=== PATIENT | female | born 1995 | race Caucasian/White ===

== ENCOUNTER 2017-07-23 22:14 | Emergency (ER) | payer OTHER ==
[~2017-07-23] VITALS: Ht 154.9 cm; Wt 104.3 kg
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
--- NOTE | 2017-07-23 23:13 | EKG ---
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
[2017-07-24 00:47] VITALS: BP 144/87
== END 2017-07-24 00:47 | disposition home or self-care (01) ==
LOC: ER 22:14
DX: S69.92XA Unspecified injury of left wrist, hand and finger(s), initial encounter (principal); W86.8XXA Exposure to other electric current, initial encounter; Y93.89 Activity, other specified; Y99.8 Other external cause status; Y92.89 Other specified places as the place of occurrence of the external cause
CPT/HCPCS: 36415; 82553; 84484; 93005; 99285-25

== ENCOUNTER 2018-11-30 13:38 | Emergency (ER) | payer SELFPAY ==
[~2018-11-30] VITALS: Ht 157.5 cm; Wt 96.6 kg
[2018-11-30] MEDS ORDERED: IOHEXOL 300 MG/ML 75 ML VIAL. IV ONE (14:15)
[2018-11-30] MEDS ORDERED: IV NORMAL SALINE 1,000ML 1,000 ML IV ONE (14:15)
[2018-11-30 14:26] LABS: BASO % 0 % (0-3); EOS % 0 % (0-3); HEMATOCRIT 38.2 % (36.0-47.0); LYMPH % 28 % (24-48); MEAN CORPUSCULAR HEMOGLOBIN 28 pg (25-35); MEAN CORPUSCULAR HGB CONC 34 g/dL (31-37); MEAN CORPUSCULAR VOLUME 82 fL (79-100); MONO # 0.9 x10^3/uL (0.0-1.1); MONO % 13 % (0-9); NEUT # 4.1 x10^3uL (1.8-7.7); NEUT % 58 % (31-73); PLATELET COUNT 203 x10^3/uL (140-400); RED BLOOD COUNT 4.69 x10^6/uL (3.50-5.40); RED CELL DISTRIBUTION WIDTH 14.9 % (11.5-14.5); WHITE BLOOD COUNT 7.1 x10^3/uL (4.0-11.0)
[2018-11-30] MEDS ORDERED: ACETAMINOPHEN 500 MG TABLET PO ONE (14:30)
[2018-11-30] MEDS ORDERED: FAMOTIDINE 20 MG/2 ML VIAL IVP ONE (14:30)
[2018-11-30] MEDS ORDERED: KETOROLAC 15 MG/ML VIAL. IV ONE (14:30)
[2018-11-30 14:42] LABS: ALBUMIN 3.5 g/dL (3.4-5.0); ALBUMIN/GLOBULIN RATIO 0.7 (1.0-1.7); CALCIUM 8.8 mg/dL (8.5-10.1); CREATININE 0.9 mg/dL (0.6-1.0); GFR 77.6; MAGNESIUM 1.9 mg/dL (1.8-2.4); POTASSIUM 3.2 mmol/L (3.5-5.1); TOTAL BILIRUBIN 0.4 mg/dL (0.2-1.0); TOTAL PROTEIN 8.8 g/dL (6.4-8.2)
[2018-11-30 14:57] LABS: BILIRUBIN,URINE NEG (NEG); CLARITY,URINE CLOUDY; COLOR,URINE AMBER; GLUCOSE,URINE NEG (NEG); NITRITE,URINE POS (NEG); UROBILINOGEN,URINE 0.2 mg/dL (0.2 mg/dL)
[2018-11-30 14:58] LABS: BACTERIA,URINE MANY /HPF (0-FEW); SQUAMOUS EPITHELIAL CELL,UR MOD /LPF
--- NOTE | 2018-11-30 15:32 | RAD ---
CT study of the abdomen and pelvis with contrast Clinical indications: Abdominal pain. Nausea and vomiting. Symptoms for 2 days. No surgical history. TECHNIQUE: After IV infusion 75 cc Omnipaque 300, helical CT scanning of the abdomen and pelvis was performed. No GI contrast was administered. This may decrease the sensitivity to detect GI tract pathology. PQRS compliance Statement One or more of the following individualized dose reduction techniques were utilized for this study: 1. Automated exposure control 2. Adjustment of the mA and/or kV according to patient size 3. Use of iterative reconstruction technique COMPARISON: None available. FINDINGS: Diffuse fatty infiltration of the liver is evident. The spleen measures 12.6 cm in length. This is normal. Pancreas and gallbladder are normal. No extrahepatic biliary ductal dilatation is seen. No adrenal mass is evident. Both kidneys are normal without hydronephrosis or hydroureter. Urinary bladder is empty. No uterine mass or fibroid is seen. No dominant ovarian cyst or mass is seen. However, there is inflammation around the right ovary and distal small bowel. The right ovary appears normal and is not abnormally enlarged in comparison to the left side. There is enhancement of the right ovarian vein. There is adjacent wall thickening of the distal ileum. The appendix is normal. No abscess or free air is seen. There is a small amount of dependent free fluid within the pelvis. No lytic process is evident. No lung base consolidation is seen. IMPRESSION: Inflammation of the mesentery of the right lower quadrant of the abdomen in association with wall thickening of the distal ileum. This is consistent with enteritis may be infectious or inflammatory in nature. Therefore, Crohn's disease is a consideration. Electronically signed by: Ernesto Bustos MD (11/30/2018 3:29 PM) [id number]
[2018-11-30] MEDS ORDERED: cefTRIAXone SODIUM 1 GM VIAL ONE (15:36)
[2018-11-30] MEDS ORDERED: IV NORMAL SALINE 50ML 50 ML ONE (15:37)
[2018-11-30] MEDS ORDERED: HYOS0.1265 SL (15:39)
[2018-11-30] MEDS ORDERED: FAMO-63 PO (15:39)
[2018-11-30] MEDS ORDERED: ONDA4TAB12 PO (15:39)
[2018-11-30] MEDS ORDERED: CEPH-264 PO (15:39)
--- NOTE | 2018-11-30 15:39 | PHYS DOC ---
Past History Past Medical History: No Pertinent History Past Surgical History: Tonsillectomy Smoking: Non-smoker Alcohol Use: None Drug Use: Marijuana Adult General Chief Complaint Chief Complaint: NAUSEA/VOMITING/DIARRHEA HPI HPI 23-year-old female presents with upper abdominal pain with associated nausea, vo miting, and diarrhea x 2 days. Reports associated fever. Denies known sick contacts. Denies trauma. Denies sore throat or nasal congestion. Denies cough. Denies . Reports menstrual period started today. Review of Systems Review of Systems Constitutional: Reports associated fever and chills Eyes: Denies redness or eye pain HENT: Denies nasal congestion or sore throat Respiratory: Denies cough or shortness of breath Cardiovascular: Denies chest pain or palpitations GI: Reports abdominal pain, nausea, and vomiting : Denies dysuria or hematuria Musculoskeletal: Denies back pain or joint pain Integument: Denies rash or skin lesions Neurologic: Denies headache, focal weakness or sensory changes Complete systems were reviewed and found to be within normal limits, except as documented in this note. Current Medications Current Medications Current Medications Medications (Trade) Dose Ordered Sig/Jeana Start Time Stop Time Status Last Admin Dose Admin Acetaminophen (Tylenol) 500 mg 1X ONCE 11/30/18 14:30 11/30/18 14:31 DC 11/30/18 14:23 500 MG Ceftriaxone Sodium 1 gm/ Sodium Chloride 50 ml @ 100 mls/hr 1X ONCE 11/30/18 15:30 11/30/18 15:59 UNV Famotidine (Pepcid Vial) 20 mg 1X ONCE 11/30/18 14:30 11/30/18 14:31 DC 11/30/18 14:23 20 MG Iohexol (Omnipaque 300 Mg/ml) 75 ml 1X ONCE 11/30/18 14:15 11/30/18 14:16 DC 11/30/18 14:52 75 ML Ketorolac Tromethamine (Toradol 15mg Vial) 15 mg 1X ONCE 11/30/18 14:30 11/30/18 14:31 DC 11/30/18 14:23 15 MG Sodium Chloride 1,000 ml @ 1,000 mls/hr 1X ONCE 11/30/18 14:15 11/30/18 15:14 DC 11/30/18 14:24 1,000 MLS/HR Allergies Allergies Allergies Coded Allergies Type Severity Reaction Last Updated Verified diphenhydramine Allergy Unknown 07/24/17 Yes Physical Exam Physical Exam Constitutional: Well developed, well nourished, no acute distress, non-toxic appearance HENT: Normocephalic, atraumatic, oropharynx moist Eyes: Conjunctiva normal, no discharge Neck: Normal range of motion, no tenderness, supple Cardiovascular: Heart rate normal, regular rhythm Lungs & Thorax: Bilateral breath sounds clear to auscultation, no wheezing Abdomen: Soft, lower quandrant pain on palpation, nondistended, no rebound tenderness Skin: Warm, dry, no erythema, no rash Extremities: No tenderness, ROM intact, no edema Neurologic: Alert and oriented X 3, no focal deficits noted Psychologic: Affect normal, judgement normal, mood normal Current Patient Data Vital Signs Vital Signs Date Time Temp Pulse Resp B/P (MAP) Pulse Ox O2 Delivery O2 Flow Rate FiO2 11/30/18 14:10 102.9 127 20 97 Room Air Lab Results Laboratory Tests Test 11/30/18 14:00 11/30/18 14:30 11/30/18 14:41 White Blood Count 7.1 x10^3/uL (4.0-11.0) Red Blood Count 4.69 x10^6/uL (3.50-5.40) Hemoglobin 13.0 g/dL (12.0-15.5) Hematocrit 38.2 % (36.0-47.0) Mean Corpuscular Volume 82 fL (79-100) Mean Corpuscular Hemoglobin 28 pg (25-35) Mean Corpuscular Hemoglobin Concent 34 g/dL (31-37) Red Cell Distribution Width 14.9 % (11.5-14.5) H Platelet Count 203 x10^3/uL (140-400) Neutrophils (%) (Auto) 58 % (31-73) Lymphocytes (%) (Auto) 28 % (24-48) Monocytes (%) (Auto) 13 % (0-9) H Eosinophils (%) (Auto) 0 % (0-3) Basophils (%) (Auto) 0 % (0-3) Neutrophils # (Auto) 4.1 x10^3uL (1.8-7.7) Lymphocytes # (Auto) 2.0 x10^3/uL (1.0-4.8) Monocytes # (Auto) 0.9 x10^3/uL (0.0-1.1) Eosinophils # (Auto) 0.0 x10^3/uL (0.0-0.7) Basophils # (Auto) 0.0 x10^3/uL (0.0-0.2) Sodium Level 132 mmol/L (136-145) L Potassium Level 3.2 mmol/L (3.5-5.1) L Chloride Level 94 mmol/L (98-107) L Carbon Dioxide Level 26 mmol/L (21-32) Anion Gap 12 (6-14) Blood Urea Nitrogen 11 mg/dL (7-20) Creatinine 0.9 mg/dL (0.6-1.0) Estimated GFR (Cockcroft-Gault) 77.6 BUN/Creatinine Ratio 12 (6-20) Glucose Level 84 mg/dL (70-99) Lactic Acid Level 1.0 mmol/L (0.4-2.0) Calcium Level 8.8 mg/dL (8.5-10.1) Magnesium Level 1.9 mg/dL (1.8-2.4) Total Bilirubin 0.4 mg/dL (0.2-1.0) Aspartate Amino Transferase (AST) 36 U/L (15-37) Alanine Aminotransferase (ALT) 40 U/L (14-59) Alkaline Phosphatase 55 U/L (46-116) Total Protein 8.8 g/dL (6.4-8.2) H Albumin 3.5 g/dL (3.4-5.0) Albumin/Globulin Ratio 0.7 (1.0-1.7) L Lipase 88 U/L (73-393) Urine Collection Type Unknown Urine Color Sara Urine Clarity Cloudy Urine pH 6.0 Urine Specific [place] 1.020 Urine Protein >100 mg/dl (NEG-TRACE) Urine Glucose (UA) Neg mg/dL (NEG) Urine Ketones (Stick) 40 mg/dL (NEG) Urine Blood Trace (NEG) Urine Nitrite Pos (NEG) Urine Bilirubin Neg (NEG) Urine Urobilinogen Dipstick 0.2 mg/dL (0.2 mg/dL) Urine Leukocyte Esterase Neg (NEG) Urine RBC 1-2 /HPF (0-2) Urine WBC 5-10 /HPF (0-4) Urine Squamous Epithelial Cells Mod /LPF Urine Bacteria Many /HPF (0-FEW) Urine Mucus Slight /LPF POC Urine HCG, Qualitative hcg negative (Negative) EKG EKG [] Radiology/Procedures Radiology/Procedures PROCEDURE: CT ABD PELV W/ IV CONTRST ONLY CT study of the abdomen and pelvis with contrast Clinical indications: Abdominal pain. Nausea and vomiting. Symptoms for 2 days. No surgical history. TECHNIQUE: After IV infusion 75 cc Omnipaque 300, helical CT scanning of the abdomen and pelvis was performed. No GI contrast was administered. This may decrease the sensitivity to detect GI tract pathology. PQRS compliance Statement One or more of the following individualized dose reduction techniques were utilized for this study: 1. Automated exposure control 2. Adjustment of the mA and/or kV according to patient size 3. Use of iterative reconstruction technique COMPARISON: None available. FINDINGS: Diffuse fatty infiltration of the liver is evident. The spleen measures 12.6 cm in length. This is normal. Pancreas and gallbladder are normal. No extrahepatic biliary ductal dilatation is seen. No adrenal mass is evident. Both kidneys are normal without hydronephrosis or hydroureter. Urinary bladder is empty. No uterine mass or fibroid is seen. No dominant ovarian cyst or mass is seen. However, there is inflammation around the right ovary and distal small bowel. The right ovary appears normal and is not abnormally enlarged in comparison to the left side. There is enhancement of the right ovarian vein. There is adjacent wall thickening of the distal ileum. The appendix is normal. No abscess or free air is seen. There is a small amount of dependent free fluid within the pelvis. No lytic process is evident. No lung base consolidation is seen. IMPRESSION: Inflammation of the mesentery of the right lower quadrant of the abdomen in association with wall thickening of the distal ileum. This is consistent with enteritis may be infectious or inflammatory in nature. Therefore, Crohn's disease is a consideration. Electronically signed by: Ernesto Bustos MD (11/30/2018 3:29 PM) [id number] Course & Med Decision Making Course & Med Decision Making Pertinent Labs and Imaging studies reviewed. (See chart for details) Patient presents with lower abdominal pain with associated N/V/D and fever/chills. Fever addressed. Symptomatic treatment provided. Labs obtained and posted to chart. UA signs of infection. Empiric antibiotics given. CT abd/pelvis without surgical process. Cannot exclude enteritis or inflammatory bowel disease. Patient stable for discharge with outpatient follow-up with PCP/GI. Discussed findings and plan with patient, who acknowledges understanding and agreement. Dragon Disclaimer Dragon Disclaimer This electronic medical record was generated, in whole or in part, using a voice recognition dictation system. Departure Departure: Impression: Primary Impression: Abdominal pain Additional Impressions: Nausea vomiting and diarrhea Urinary tract infection Disposition: HOME, SELF-CARE Condition: STABLE Referrals: OLVIN PENALOZA MD (PCP) Patient Instructions: Abdominal Pain (Nonspecific), Diarrhea, [id number]-[id number], Diet for Diarrhea, Adult, Nausea and Vomiting, [id number] Scripts Cephalexin (KEFLEX) 500 Mg Capsule 1 CAP PO TID for UTI, #21 CAP Prov: NAA COREA DO 11/30/18 Famotidine (PEPCID) 20 Mg Tablet 1 TAB PO BID for gastritis, #20 TAB Prov: NAA COREA DO 11/30/18 Hyoscyamine Sulfate (LEVSIN-SL) 0.125 Mg Tab.subl 1-2 TAB SL PRN Q4HRS PRN for PAIN, #14 TAB Prov: NAA COREA DO 11/30/18 Ondansetron (ONDANSETRON ODT) 4 Mg Tab.rapdis 1 TAB PO PRN Q6-8HRS PRN for NAUSEA, #16 TAB Prov: NAA COREA DO 11/30/18 Problem Qualifiers Primary Impression: Abdominal pain Abdominal location: lower abdomen, unspecified Qualified Codes: R10.30 - Lower abdominal pain, unspecified Additional Impressions: Urinary tract infection Urinary tract infection type: acute cystitis Hematuria presence: without hematuria Qualified Codes: N30.00 - Acute cystitis without hematuria NAA COREA DO Nov 30, 2018 15:39
[2018-11-30 16:33] VITALS: BP 86/55
== END 2018-11-30 16:37 | disposition home or self-care (01) ==
LOC: ER 13:38
DX: N30.00 Acute cystitis without hematuria (principal); R11.2 Nausea with vomiting, unspecified; R19.7 Diarrhea, unspecified; Z88.8 Allergy status to other drugs, medicaments and biological substances
CPT/HCPCS: 36415; 74177; 80053; 81001; 81025; 83605; 83690; 83735; 85025; 87086; 96361; 96365; 96375; 99285; J0696; J1885; J3490; Q9967; 87186; J7030

== ENCOUNTER 2019-06-23 20:05 | Emergency (ER) | payer OTHER ==
[~2019-06-23] VITALS: Ht 157.5 cm; Wt 93.8 kg
[~2019-06-23 20:05] MED LIST: CEPH-264 PO; FAMO-63 PO; HYOS0.1265 SL; ONDA4TAB12 PO
[2019-06-23 21:38] LABS: BILIRUBIN,URINE NEG (NEG); CLARITY,URINE CLEAR; COLOR,URINE YELLOW; GLUCOSE,URINE NEG (NEG)
[2019-06-23 21:39] LABS: BACTERIA,URINE 0 /HPF (0-FEW); HYALINE CASTS, URINE OCC /HPF; NITRITE,URINE NEG (NEG); RBC,URINE 0 /HPF (0-2); SQUAMOUS EPITHELIAL CELL,UR FEW /LPF; UROBILINOGEN,URINE 0.2 mg/dL (0.2 mg/dL); WBC,URINE OCC /HPF (0-4)
--- NOTE | 2019-06-23 21:53 | PHYS DOC ---
Past History Past Medical History: No Pertinent History Past Surgical History: Tonsillectomy Smoking: Non-smoker Alcohol Use: None Drug Use: Marijuana Adult General Chief Complaint Chief Complaint: FLANK PAIN HPI HPI 24-year-old female presents with left lower back pain. She has been having a cramping pain throughout the day today. She admits that she's been moving a lot of boxes around. She believes she could be up to 2 months . Her last period was in February. He had a positive urine test at home 3 days ago. She denies abdominal pain, vaginal discharge, vaginal bleeding, or cramping. She denies dysuria or increased urinary frequency. No history of kidney stones. She denies any falls or trauma. Denies fever or chills. Review of Systems Review of Systems Constitutional: Denies fever or chills [] Eyes: Denies change in visual acuity, redness, or eye pain [] HENT: Denies nasal congestion or sore throat [] Respiratory: Denies cough or shortness of breath [] Cardiovascular: No additional information not addressed in HPI [] GI: Denies abdominal pain, nausea, vomiting, bloody stools or diarrhea [] : Denies dysuria or hematuria [] Musculoskeletal: Left-sided low back pain[] Integument: Denies rash or skin lesions [] Neurologic: Denies headache, focal weakness or sensory changes [] Endocrine: Denies polyuria or polydipsia [] All other systems were reviewed and found to be within normal limits, except as documented in this note. Allergies Allergies Allergies Coded Allergies Type Severity Reaction Last Updated Verified diphenhydramine Allergy Unknown 07/24/17 Yes Physical Exam Physical Exam Constitutional: Well developed, well nourished, no acute distress, non-toxic appearance. [] HENT: Normocephalic, atraumatic, bilateral external ears normal, oropharynx moist, no oral exudates, nose normal. [] Eyes: PERRLA, EOMI, conjunctiva normal, no discharge. [] Neck: Normal range of motion, no tenderness, supple, no stridor. [] Cardiovascular:Heart rate regular rhythm, no murmur [] Lungs & Thorax: Bilateral breath sounds clear to auscultation [] Abdomen: Bowel sounds normal, soft, no tenderness, no masses, no pulsatile masses. [] Skin: Warm, dry, no erythema, no rash. [] Back: Left-sided lumbar paraspinal tenderness[] Extremities: No tenderness, no cyanosis, no clubbing, ROM intact, no edema. [] Neurologic: Alert and oriented X 3, normal motor function, normal sensory function, no focal deficits noted. [] Psychologic: Affect normal, judgement normal, mood normal. [] Current Patient Data Lab Results Laboratory Tests Test 06/23/19 20:25 06/23/19 20:32 Urine Collection Type Void Urine Color Yellow Urine Clarity Clear Urine pH 5.5 Urine Specific [place] 1.025 Urine Protein Neg (NEG-TRACE) Urine Glucose (UA) Neg mg/dL (NEG) Urine Ketones (Stick) Neg mg/dL (NEG) Urine Blood Neg (NEG) Urine Nitrite Neg (NEG) Urine Bilirubin Neg (NEG) Urine Urobilinogen Dipstick 0.2 mg/dL (0.2 mg/dL) Urine Leukocyte Esterase Neg (NEG) Urine RBC 0 /HPF (0-2) Urine WBC Occ /HPF (0-4) Urine Squamous Epithelial Cells Few /LPF Urine Bacteria 0 /HPF (0-FEW) Urine Hyaline Casts Occ /HPF Urine Mucus Slight /LPF POC Urine HCG, Qualitative hcg positive (Negative) EKG EKG [] Radiology/Procedures Radiology/Procedures [] Course & Med Decision Making Course & Med Decision Making Pertinent Labs and Imaging studies reviewed. (See chart for details) Patient's urine is positive. Her urinalysis is negative for infection. I believe she has a lumbar paraspinal muscle strain. I have advised supportive care with rest, ice, and Tylenol. At about all she can take since she is . She stable for discharge at this time. [] Dragon Disclaimer Dragon Disclaimer This electronic medical record was generated, in whole or in part, using a voice recognition dictation system. Departure Departure: Impression: Primary Impression: Lumbar strain Additional Impression: Disposition: 01 HOME, SELF-CARE Condition: STABLE Referrals: OLVIN PENALOZA MD (PCP) Patient Instructions: Low Back Strain with Rehab-SportsMed Problem Qualifiers Primary Impression: Lumbar strain Encounter type: initial encounter Qualified Codes: S39.012A - Strain of muscle, fascia and tendon of lower back, initial encounter Additional Impression: Weeks of gestation: unspecified Qualified Codes: Z34.90 - Encounter for supervision of normal , unspecified, unspecified trimester STEWART SHARMA DO Jun 23, 2019 21:52
[2019-06-23 22:20] VITALS: BP 118/81
== END 2019-06-23 22:25 | disposition home or self-care (01) ==
LOC: ER 20:05
DX: O9A.211 Injury, poisoning and certain other consequences of external causes complicating pregnancy, first trimester (principal); S39.012A Strain of muscle, fascia and tendon of lower back, initial encounter; Z3A.00 Weeks of gestation of pregnancy not specified; Z88.8 Allergy status to other drugs, medicaments and biological substances; X50.9XXA Other and unspecified overexertion or strenuous movements or postures, initial encounter; Y93.89 Activity, other specified; Y92.89 Other specified places as the place of occurrence of the external cause; Y99.8 Other external cause status
CPT/HCPCS: 81001; 81025; 99283

== ENCOUNTER 2019-09-21 17:12 | Emergency (ER) | payer OTHER ==
[~2019-09-21] VITALS: Ht 157.5 cm; Wt 94.0 kg
--- NOTE | 2019-09-21 18:24 | PHYS DOC ---
Past History Past Medical History: No Pertinent History Past Surgical History: Tonsillectomy Smoking: Non-smoker Alcohol Use: None Drug Use: Marijuana Adult General Chief Complaint Chief Complaint: ABDOMINAL PAIN IN HPI HPI Patient is a 24-year-old female who presents at approximately 19 weeks gesta tional age after falling forward today and landing on her abdomen. Patient states that she has pain in her lower abdomen where she fell and rates that as moderate pain. She denies any vaginal bleeding, discharge or fluid. Patient states that she twisted her back when she fell also has some lower back pain. She denies any fever, nausea or vomiting.[] Review of Systems Review of Systems Constitutional: Denies fever or chills [] Respiratory: Denies cough or shortness of breath [] Cardiovascular: No additional information not addressed in HPI [] GI: Complains of lower abdominal pain without vomiting or diarrhea [] : Denies dysuria or hematuria [] Neurologic: Denies headache, focal weakness or sensory changes [] All other systems were reviewed and found to be within normal limits, except as documented in this note. Allergies Allergies Allergies Coded Allergies Type Severity Reaction Last Updated Verified diphenhydramine Allergy Unknown 07/24/17 Yes Physical Exam Physical Exam Constitutional: Well developed, well nourished, no acute distress, non-toxic appearance. [] HENT: Normocephalic, atraumatic, bilateral external ears normal, oropharynx moist, no oral exudates, nose normal. [] Eyes: PERRLA, EOMI, conjunctiva normal, no discharge. [] Neck: Normal range of motion, no tenderness, supple, no stridor. [] Cardiovascular:Heart rate regular rhythm, no murmur [] Lungs & Thorax: Bilateral breath sounds clear to auscultation [] Abdomen: Bowel sounds normal, soft, with lower abdominal tenderness. [] Skin: Warm, dry, no erythema, no rash. [] Extremities: No tenderness, no cyanosis, no clubbing, ROM intact. [] Neurologic: Alert and oriented X 3, no focal deficits noted. [] Current Patient Data Vital Signs Vital Signs Date Time Temp Pulse Resp B/P (MAP) Pulse Ox O2 Delivery O2 Flow Rate FiO2 09/21/19 17:20 98.2 96 18 122/92 (102) 98 Room Air EKG EKG [] Radiology/Procedures Radiology/Procedures [] Impressions: ROCEDURE: PREG MORE THAN OR EQ TO 14 WKS Exam: Ultrasound OB greater than 14 weeks Indication: Fall Technique: Real-time grayscale and color Doppler images of the pelvis were obtained by the department forensic materials engineer. Comparisons: None FINDINGS: There is a single live intrauterine gestation with heart rate measured at 155 beats minute. Cervix is measured at 4.5 cm in length. measurements as follows: BPD: 4.0 cm corresponding to 18 weeks 2 days Head circumference: 15.76 cm corresponding to 18 weeks 4 days Abdominal circumference: 12 point Malhotra corresponding to 18 weeks 3 days Femur length: 2.8 cm corresponding to 18 weeks 3 days Placenta is anterior and appears normal. IMPRESSION: 1. Single live intrauterine gestation measuring 18 weeks 3 days gestation by current ultrasound. 2. Dedicated survey is recommended in the nonemergent/outpatient setting, if not already performed. Electronically signed by: Hansa Madrigal MD (09/21/2019 7:56 PM) [id number] Course & Med Decision Making Course & Med Decision Making Pertinent Labs and Imaging studies reviewed. (See chart for details) [] Dragon Disclaimer Dragon Disclaimer This electronic medical record was generated, in whole or in part, using a voice recognition dictation system. Departure Departure: Impression: Primary Impression: Abdominal pain during Disposition: 01 HOME, SELF-CARE Condition: STABLE Referrals: OLVIN PENALOZA MD (PCP) Patient Instructions: Abdominal Pain During Problem Qualifiers Primary Impression: Abdominal pain during Trimester: second trimester Qualified Codes: O26.892 - Other specified related conditions, second trimester; R10.9 - Unspecified abdominal pain REINA ADHIKARI Jr. DO Sep 21, 2019 18:24
[2019-09-21 18:59] LABS: BACTERIA,URINE MOD /HPF (0-FEW); BILIRUBIN,URINE NEG (NEG); CLARITY,URINE HAZY; COLOR,URINE YELLOW; GLUCOSE,URINE NEG (NEG); NITRITE,URINE POS (NEG); RBC,URINE 0 /HPF (0-2); SQUAMOUS EPITHELIAL CELL,UR FEW /LPF; UROBILINOGEN,URINE 0.2 mg/dL (0.2 mg/dL)
--- NOTE | 2019-09-21 19:59 | RAD ---
Exam: Ultrasound OB greater than 14 weeks Indication: Fall Technique: Real-time grayscale and color Doppler images of the pelvis were obtained by the department photolithographer. Comparisons: None FINDINGS: There is a single live intrauterine gestation with heart rate measured at 155 beats minute. Cervix is measured at 4.5 cm in length. measurements as follows: BPD: 4.0 cm corresponding to 18 weeks 2 days Head circumference: 15.76 cm corresponding to 18 weeks 4 days Abdominal circumference: 12 point Malhotra corresponding to 18 weeks 3 days Femur length: 2.8 cm corresponding to 18 weeks 3 days Placenta is anterior and appears normal. IMPRESSION: 1. Single live intrauterine gestation measuring 18 weeks 3 days gestation by current ultrasound. 2. Dedicated survey is recommended in the nonemergent/outpatient setting, if not already performed. Electronically signed by: Hansa Madrigal MD (09/21/2019 7:56 PM) [id number]
[2019-09-21 20:18] VITALS: BP 129/74
== END 2019-09-21 20:20 | disposition home or self-care (01) ==
LOC: ER 17:12
DX: O9A.212 Injury, poisoning and certain other consequences of external causes complicating pregnancy, second trimester (principal); R10.30 Lower abdominal pain, unspecified; M54.5 Low back pain; W18.39XA Other fall on same level, initial encounter; Y93.89 Activity, other specified; Y92.89 Other specified places as the place of occurrence of the external cause; Y99.8 Other external cause status; Z3A.18 18 weeks gestation of pregnancy; Z88.8 Allergy status to other drugs, medicaments and biological substances
CPT/HCPCS: 76805; 81001; 87086; 99284-25

== ENCOUNTER 2020-08-11 08:16 | Emergency (ER) | payer OTHER ==
[~2020-08-11] VITALS: Ht 157.5 cm; Wt 93.0 kg
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
[2020-08-11 10:26] LABS: BACTERIA,URINE FEW /HPF (0-FEW); BILIRUBIN,URINE NEG (NEG); CLARITY,URINE CLOUDY; COLOR,URINE YELLOW; GLUCOSE,URINE NEG (NEG); NITRITE,URINE NEG (NEG); UROBILINOGEN,URINE 0.2 mg/dL (0.2 mg/dL)
[2020-08-11 10:27] LABS: GRANULAR CASTS,URINE OCC /HPF; SQUAMOUS EPITHELIAL CELL,UR MANY /LPF
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
[2020-08-11 10:55] VITALS: BP 151/90
== END 2020-08-11 10:55 | disposition home or self-care (01) ==
LOC: ER 08:16
DX: O26.891 Other specified pregnancy related conditions, first trimester (principal); S02.2XXA Fracture of nasal bones, initial encounter for closed fracture; S00.531A Contusion of lip, initial encounter; R10.9 Unspecified abdominal pain; R60.0 Localized edema; F32.9 Major depressive disorder, single episode, unspecified; F12.90 Cannabis use, unspecified, uncomplicated; Z90.89 Acquired absence of other organs; Z88.8 Allergy status to other drugs, medicaments and biological substances; Y08.89XA Assault by other specified means, initial encounter; Y93.89 Activity, other specified; Y92.413 State road as the place of occurrence of the external cause; Y99.8 Other external cause status
CPT/HCPCS: 76801; 81001; 81025; 87086; 99284

== ENCOUNTER 2020-11-13 15:37 | Emergency (ER) | payer OTHER ==
[~2020-11-13] VITALS: Ht 157.5 cm; Wt 104.5 kg
--- NOTE | 2020-11-13 16:17 | PHYS DOC ---
Past History Past Medical History: Bipolar, Depression, Other Additional Past Medical Histor: HSV2, iron deficiency Past Surgical History: Tonsillectomy Smoking: Non-smoker Alcohol Use: None Drug Use: Marijuana General Adult EDM: Chief Complaint: PELVIC PAIN HPI: HPI: Patient is a 25-year-old female presents with pelvic pain. Patient states that she 27 weeks . 2 days ago patient states that she started having pelvic pain and pressure, and her leg like it was tingling. Patient denies vaginal bleeding, discharge, odor or loss of fluid. Patient is . Patient states that she did take Tylenol yesterday but did not get any relief. Denies medical history. Review of Systems: Review of Systems: Constitutional: Denies fever or chills Eyes: Denies change in visual acuity HENT: Denies nasal congestion or sore throat Respiratory: Denies cough or shortness of breath Cardiovascular: Denies chest pain or edema GI: Denies abdominal pain, nausea, vomiting, bloody stools or diarrhea /Pelvic: Denies dysuria, reports pelvic pressure and pain Musculoskeletal: Denies back pain or joint pain Integument: Denies rash Neurologic: Denies headache, focal weakness or sensory changes Endocrine: Denies polyuria or polydipsia Lymphatic: Denies swollen glands Psychiatric: Denies depression or anxiety Allergies: Allergies: Allergies Coded Allergies Type Severity Reaction Last Updated Verified diphenhydramine Allergy Unknown 08/11/20 Yes Physical Exam: PE: Constitutional: Well developed, well nourished, no acute distress, non-toxic appearance. [] HENT: Normocephalic, atraumatic, bilateral external ears normal, oropharynx moist, no oral exudates, nose normal. [] Eyes: PERRLA, EOMI, conjunctiva normal, no discharge. [] Neck: Normal range of motion, no tenderness, supple, no stridor. [] Cardiovascular:Heart rate regular rhythm, no murmur [] Lungs & Thorax: Bilateral breath sounds clear to auscultation [] Abdomen: Bowel sounds normal, soft, no tenderness, no masses, no pulsatile masses. [] Skin: Warm, dry, no erythema, no rash. [] Back: No tenderness, no CVA tenderness. [] Pelvic: Cervical OS closed, no bleeding or discharge Current Patient Data: Vital Signs: Vital Signs Date Time Temp Pulse Resp B/P (MAP) Pulse Ox O2 Delivery O2 Flow Rate FiO2 11/13/20 15:54 98.7 94 18 132/71 (91) 99 Room Air EKG: EKG: [] Radiology/Procedures: Radiology/Procedures: [] Heart Score: C/O Chest Pain: No Risk Factors: Risk Factors: DM, Current or recent (<one month) smoker, HTN, HLP, family history of CAD, obesity. Risk Scores: Score 0 - 3: 2.5% MACE over next 6 weeks - Discharge Home Score 4 - 6: 20.3% MACE over next 6 weeks - Admit for Clinical Observation Score 7 - 10: 72.7% MACE over next 6 weeks - Early Invasive Strategies Course & Med Decision Making: Course & Med Decision Making Pertinent Labs and Imaging studies reviewed. (See chart for details) [] 25-year-old female who presents with pelvic pain, pressure. Patient is G4, P2. No bleeding or discharge on physical exam. Cervical os is closed. heart tones are 151. GC chlamydia and wet prep swab sent out. UA is negative for infection. Wet prep is negative. Patient instructed to take Tylenol for discomfort. Patient instructed to call her OB tomorrow for a follow-up. Patient given strict return precautions. Dragon Disclaimer: [employer] Disclaimer: This electronic medical record was generated, in whole or in part, using a voice recognition dictation system. Departure Departure: Impression: Primary Impression: Pelvic pressure in Disposition: HOME / SELF CARE / HOMELESS Condition: STABLE Referrals: OLVIN PENALOZA MD (PCP) Patient Instructions: Back Pain in Additional Instructions: You were seen in the emergency room for pelvic pressure pain, back pain. Please return to the emergency room if you have vaginal bleeding, loss of fluid, cramping increase in pain or any concerning symptoms. Please call your OB tomorrow to set up an appointment for further management. Your your UA was negative for infection. You can take Tylenol for discomfort. EMERGENCY DEPARTMENT GENERAL DISCHARGE INSTRUCTIONS Thank you for coming to [facility] (ED) today and trusting us with you care. We trust that you had a positivie experience in our Emergency Department. If you wish to speak to the department management, you may call the director at [phone]. YOUR FOLLOW UP INSTRUCTIONS ARE FOLLOWS: 1. Do you have a private Doctor? If you do not have a private doctor, please ask for a resource list of physicians or clinics that may be able to assist you with follow up care. 2. The Emergency Physician has interpreted your x-rays. The X-Ray specialist will also review them. If there is a change in the findings, you will be notified in 48 hours when at all possible. 3. A lab test or culture has been done, your results will be reviewed and you will be notified if you need a change in treatment. ADDITIONAL INSTRUCTIONS AND INFORMATION: 1. Your care today has been supervised by a physician who is specially trained in emergency care. Many problems require more than one evaluation for a complete diagnosis and treatment. We recommend that you schedule your follow up appointment as recommended to ensure complete treatment of you illness or injury. If you are unable to obtain follow up care and continue to have a problem, or if your condition worsens, we recommend that you return to the ED. 2. We are not able to safely determine your condition over the phone nor are we able to give sound medical advice over the phone. For these safety reasons, if you call for medical advice we will ask you to come to the ED for further evaluation. 3. If you have any questions regarding these discharge instructions please call the ED at [phone]. SAFETY INFORMATION: In the interest of safety, wellness, and injury prevention; we encourage you to wear your sealbelt, if you smoke; quite smoking, and we encourage family to use a protective helmet for bicycling and other sporting events that present an increased risk for head injury. IF YOUR SYMPTOMS WORSEN OR NEW SYMPTOMS DEVELOP, OR YOU HAVE CONCERNS ABOUT YOUR CONDITION; OR IF YOUR CONDITION WORSENS WHILE YOU ARE WAITING FOR YOUR FOLLOW UP INESSA OINTMENT; EITHER CONTACT YOUR PRIMARY CARE DOCTOR, THE PHYSICIAN WHOSE NAME AND NUMBER YOU WERE GIVEN, OR RETURN TO THE ED IMMEDIATELY. SULEMA HARMON APRN November 13, 2020 16:17
[2020-11-13 17:45] VITALS: BP 128/71
[2020-11-13 17:53] LABS: BACTERIA,URINE FEW /HPF (0-FEW); BILIRUBIN,URINE NEG (NEG); CLARITY,URINE CLEAR; COLOR,URINE YELLOW; GLUCOSE,URINE NEG (NEG); NITRITE,URINE NEG (NEG); RBC,URINE 0 /HPF (0-2); UROBILINOGEN,URINE 0.2 mg/dL (0.2 mg/dL); WBC,URINE OCC /HPF (0-4)
[2020-11-13 17:54] LABS: SQUAMOUS EPITHELIAL CELL,UR FEW /LPF
[2020-11-13] MEDS ORDERED: ACETAMINOPHEN 500 MG TABLET PO ONE (18:00)
[2020-11-14 17:16] LABS: CHLAMYDIA PROBE Negative (Negative)
== END 2020-11-13 18:30 | disposition home or self-care (01) ==
LOC: ER 15:37
DX: O26.892 Other specified pregnancy related conditions, second trimester (principal); R10.2 Pelvic and perineal pain; Z3A.27 27 weeks gestation of pregnancy; Z88.8 Allergy status to other drugs, medicaments and biological substances
CPT/HCPCS: 81001; 87491; 87591; 99284; Q0111

== ENCOUNTER 2021-01-24 14:13 | Emergency (ER) | payer OTHER ==
[~2021-01-24] VITALS: Ht 157.5 cm; Wt 104.5 kg
[2021-01-24] MEDS ORDERED: ACETAMINOPHEN 500 MG TABLET PO ONE (16:00)
--- NOTE | 2021-01-24 16:04 | PHYS DOC ---
Past History Past Medical History: Bipolar, Depression, Other Additional Past Medical Histor: HSV2, iron deficiency Past Surgical History: No Surgical History, Tonsillectomy Smoking: Non-smoker Alcohol Use: None Drug Use: None, Marijuana General Adult EDM: Chief Complaint: COUGH Problems: (1) Shortness of breath HPI: HPI: 25-year-old female who is currently 36 weeks gestation presents to the emergency department complaining of shortness of breath, chills, congestion and not feeling well for the past several days. She reports that her recently tested positive for Covid and she took an at home Covid test that was positive as well. She endorses a cough along with shortness of breath. the patient denies loss of fluid, vaginal discharge, vaginal bleeding, headache, vision changes, abdominal pain, nausea, vomiting, diarrhea, change in urination, edema. Review of Systems: Review of Systems: Constitutional: Admits to chills, fatigue. Eyes: Denies change in vision, pain. HENT: Admits to congestion and shortness of breath. Respiratory: Admits to shortness of breath and cough. Cardiovascular: Denies chest pain or edema. GI: Denies abdominal pain, nausea. : Denies change in urination, dysuria, vaginal bleeding, vaginal discharge, l oss of fluid. Musculoskeletal: Denies extremity pain, or trauma. Skin: Denies rash, skin change. Neurologic: Denies headache, focal weakness. Psychiatric: Denies depression or anxiety. All other systems reviewed as negative except for what was mentioned in the HPI. Family History: Family History: Noncontributory Current Medications: Current Meds: Current Medications Medications (Trade) Dose Ordered Sig/[facility] Start Time Stop Time Status Last Admin Dose Admin Acetaminophen (Tylenol) 1,000 mg 1X ONCE 01/24/21 16:00 01/24/21 16:01 Allergies: Allergies: Allergies Coded Allergies Type Severity Reaction Last Updated Verified diphenhydramine Allergy Unknown 08/11/20 Yes Physical Exam: PE: Constitutional: No acute distress, non-toxic appearance. HENT: Atraumatic, bilateral external ears normal, nose normal. Eyes: PERRLA, EOMI, conjunctiva normal, no discharge. Neck: Normal range of motion, no tenderness, supple, no stridor. Cardiovascular: Heart rate regular rhythm. 2+ radial pulses Lungs & Thorax: No respiratory distress, symmetrical expansion. Bilateral breat h sounds clear to auscultation Abdomen: Gravid uterus, soft no tenderness Skin: Warm, dry. Extremities: No tenderness, no cyanosis, ROM intact, no edema. Neurologic: Alert and oriented X 3, normal motor function, normal sensory function, no focal deficits noted. Non ataxic gait. GCS 15. Psychologic: Affect normal, judgment normal, mood normal. Current Patient Data: Labs: Laboratory Tests Test 01/24/21 16:06 Urine Collection Type Unknown Urine Color Yellow Urine Clarity Hazy Urine pH 5.5 Urine Specific [place] 1.025 Urine Protein Neg (NEG-TRACE) Urine Glucose (UA) Neg mg/dL (NEG) Urine Ketones (Stick) 15 mg/dL (NEG) Urine Blood Neg (NEG) Urine Nitrite Neg (NEG) Urine Bilirubin Neg (NEG) Urine Urobilinogen Dipstick 0.2 mg/dL (0.2 mg/dL) Urine Leukocyte Esterase Neg (NEG) Urine RBC Occ /HPF (0-2) Urine WBC 0 /HPF (0-4) Urine Squamous Epithelial Cells Mod /LPF Urine Bacteria 0 /HPF (0-FEW) Urine Mucus Slight /LPF Vital Signs: Vital Signs Date Time Temp Pulse Resp B/P (MAP) Pulse Ox O2 Delivery O2 Flow Rate FiO2 01/24/21 14:27 98.5 98 16 125/81 99 Room Air Radiology/Procedures: Radiology/Procedures: XR CHEST 1V Clinical History: Reason: shortness of breath / Spl. Instructions: / History: Technique: AP view of the chest was obtained at 01/24/2021 4:05 PM. Comparison: None. Findings: The cardiomediastinal silhouette is normal. The pulmonary vasculature is normal. The lungs and pleural margins are clear. Impression: No evidence of an acute cardiopulmonary process. Electronically signed by: Eris Headley III, MD (01/24/2021 4:26 PM) Heart Score: C/O Chest Pain: N/A Course & Med Decision Making: Course & Med Decision Making Patient's urine and chest x-ray look appropriate. She was swabbed for Covid today. She otherwise is not requiring any supplemental oxygen and her vital si gns are normal and she has no related complaints. Her heart tones are 187. She was urged to follow-up with her [facility] for a follow-up as directed for her . She otherwise looks well today Departure Departure: Impression: Primary Impression: Viral infection Additional Impression: Third trimester Disposition: HOME / SELF CARE / HOMELESS Condition: STABLE Referrals: OLVIN PENALOZA MD (PCP) Patient Instructions: Upper Respiratory Infection, Adult Additional Instructions: You were seen in the emergency department for a upper respiratory tract infection, most likely from COVID-19. You should return to the ED if you develop worsening cough, shortness of breath, chest pain, or any other new or concerning symptoms. You can use an OTC sinus rinse to help with sinus con gestion. Your cough may persist for a few weeks but your other symptoms should gradually improve. You should make sure to drink plenty of fluids at home. You may use Tylenol at home for fevers every 4-6 hours no more than 4000 mg/day. Please remember it is very important that you self isolate/quarantine at home, stay away from family and friends, and stay away from work until you are cleared by your physician or you test negative and are asymptomatic. Your baby's heart tones are 187 today, this is slightly fast, but the measurement was taken at one point in time. Return immediately if you experience persistent contractions, vaginal bleeding, if you are concerned your water has broken, if you have persistent abdominal pain, if you are not feeling the baby move at least 10 times in any 2 hour period, or for any other concerning symptoms. Please follow-up with your [facility] as directed GUANAKITO FUNEZ DO Jan 24, 2021 16:04
--- NOTE | 2021-01-24 16:28 | RAD ---
XR CHEST 1V Clinical History: Reason: shortness of breath / Spl. Instructions: / History: Technique: AP view of the chest was obtained at 01/24/2021 4:05 PM. Comparison: None. Findings: The cardiomediastinal silhouette is normal. The pulmonary vasculature is normal. The lungs and pleura l margins are clear. Impression: No evidence of an acute cardiopulmonary process. Electronically signed by: Eris Headley III, MD (01/24/2021 4:26 PM) [id number]
[2021-01-24 17:04] LABS: BACTERIA,URINE 0 /HPF (0-FEW); BILIRUBIN,URINE NEG (NEG); CLARITY,URINE HAZY; COLOR,URINE YELLOW; GLUCOSE,URINE NEG (NEG); NITRITE,URINE NEG (NEG); RBC,URINE OCC /HPF (0-2); SQUAMOUS EPITHELIAL CELL,UR MOD /LPF; UROBILINOGEN,URINE 0.2 mg/dL (0.2 mg/dL); WBC,URINE 0 /HPF (0-4)
[2021-01-24 17:30] VITALS: BP 108/68
--- NOTE | 2021-01-27 10:17 | NUR ---
IP: Informed pt of positive covid test and the need to quarantine for 10 days. Pt verbalized understanding.
== END 2021-01-24 17:36 | disposition home or self-care (01) ==
LOC: ER 14:13
DX: O98.513 Other viral diseases complicating pregnancy, third trimester (principal); U07.1 COVID-19; O02.9 Abnormal product of conception, unspecified; O08.0 Genital tract and pelvic infection following ectopic and molar pregnancy; Z3A.36 36 weeks gestation of pregnancy
CPT/HCPCS: 71045; 81001; 99284; C9803; U0003

== ENCOUNTER 2021-06-12 17:05 | Emergency (ER) | payer OTHER ==
[~2021-06-12] VITALS: Ht 157.5 cm; Wt 104.5 kg
[2021-06-12 17:08] VITALS: BP 148/78
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
[2021-06-12] MEDS ORDERED: CYCL10TA19 PO (18:48)
== END 2021-06-12 18:50 | disposition home or self-care (01) ==
LOC: ER 17:05
DX: S13.9XXA Sprain of joints and ligaments of unspecified parts of neck, initial encounter (principal); S20.222A Contusion of left back wall of thorax, initial encounter; S20.212A Contusion of left front wall of thorax, initial encounter; S09.8XXA Other specified injuries of head, initial encounter; Z88.8 Allergy status to other drugs, medicaments and biological substances; Y08.89XA Assault by other specified means, initial encounter; Y93.89 Activity, other specified; Y92.89 Other specified places as the place of occurrence of the external cause; Y99.8 Other external cause status
CPT/HCPCS: 70450; 72125; 72128; 72131; 99284-25

== ENCOUNTER 2021-07-03 06:34 | Emergency (ER) | payer OTHER ==
[~2021-07-03] VITALS: Ht 157.5 cm; Wt 104.5 kg
[~2021-07-03 06:34] MED LIST changes: +CYCL10TA19 PO
--- NOTE | 2021-07-03 06:54 | PHYS DOC ---
Past History Past Medical History: Bipolar, Depression, Other Additional Past Medical Histor: HSV2, iron deficiency Past Surgical History: No Surgical History, Tonsillectomy Smoking: Non-smoker Alcohol Use: None Drug Use: None, Marijuana Adult General HPI HPI Patient is a 26-year-old female presenting for upper respiratory symptoms. Reports onset was 3 days ago. States she had recent positive COVID interaction with coworker 5 days ago. States symptoms started with nasal congestion with later development of bilateral eye itching and clear drainage with loss of taste and smell this morning which concerned her prompting her to come in for evaluation. She is not vaccinated against COVID-19 Review of Systems Review of Systems Fourteen body systems of review of systems have been reviewed. See HPI for pertinent positives and negative responses, other heath all other systems are negative, non-pertinent or non-contributory Allergies Allergies Allergies Coded Allergies Type Severity Reaction Last Updated Verified diphenhydramine Allergy Unknown 08/11/20 Yes Physical Exam Physical Exam General: Appears well, non toxic, and comfortable Skin: Warm, dry. Normal for ethnicity. HEENT: Atraumatic. PERRLA. Rhinorrhea and congestion. Nasal turbinates boggy b/l. Moist mucous membranes. Uvula midline. Maintaining secretions. No phonation changes. Neck: Trachea midline. Normal ROM. No stridor. No meningeal signs or nuchal rigidity Respiratory: Normal WOB. CTAB w/o w/r/r. No tachypnea. Cardiovascular: Regular rate and rhythm. Normal peripheral perfusion. Abdomen: Soft. Non tender. No distension. Back: Normal ROM. Musculoskeletal: No swelling or deformity. Neuro: Alert and oriented x 4. MAEE. Lymph: No cervical LAD. Psych: Normal affect and mood. EKG EKG [] Radiology/Procedures Radiology/Procedures [] Heart Score C/O Chest Pain: No Risk Factors: Risk Factors: DM, Current or recent (<one month) smoker, HTN, HLP, family history of CAD, obesity. Risk Scores: Risk Factors: DM, Current or recent (<one month) smoker, HTN, HLP, family history of CAD, obesity. Course & Med Decision Making Course & Med Decision Making CBC is unremarkable HPI and physical exam nonconcerning for any emergent or surgical issues. I disclose most likely diagnosis of viral syndrome, cannot displays COVID-19 given current pandemic in an unvaccinated individual with positive contact. PCR test obtained with results pending Appropriate self quarantine and subsequently supportive care instructions were discussed at length with understanding verbalized by patient prior to ER depart martha Johnson Disclaimer Elizabeth Disclaimer This electronic medical record was generated, in whole or in part, using a voice recognition dictation system. Departure Departure: Impression: Primary Impression: Viral syndrome Additional Impression: Person under investigation for COVID-19 Disposition: HOME / SELF CARE / HOMELESS Condition: STABLE Referrals: OLVIN PENALOZA MD (PCP) Additional Instructions: You were seen for nasal congestion, fever, body aches, and possible infection with COVID-19. Your physical exam was reassuring. We tested you for COVID-19 but this test does not come back for 1 to 2 days. In the meantime you need to quarantine yourself at home away from all other individuals, especially those who are elderly or have any other chronic health issues or an immunocompromised status. You should return to the ED if you develop worsening cough, shortness of breath, chest pain, or any other new or concerning symptoms. Alternate Tylenol and ibuprofen as needed for body aches and pain. If your test does come back positive you need to quarantine yourself for 10 days until symptom-free. You should make sure to drink plenty of fluids and get plenty of rest. Problem Qualifiers KAMRON LAUREANO DO Jul 03, 2021 06:54
[2021-07-03 06:58] VITALS: BP 138/78
== END 2021-07-03 07:28 | disposition home or self-care (01) ==
LOC: ER 06:34
DX: B34.9 Viral infection, unspecified (principal); Z20.822 Contact with and (suspected) exposure to COVID-19; F31.9 Bipolar disorder, unspecified; Z88.8 Allergy status to other drugs, medicaments and biological substances
CPT/HCPCS: 99282

== ENCOUNTER 2021-09-20 11:42 | Emergency (ER) | payer OTHER ==
[~2021-09-20] VITALS: Ht 157.5 cm; Wt 99.4 kg
--- NOTE | 2021-09-20 12:49 | PHYS DOC ---
Past History Past Medical History: Bipolar, Depression, Other Additional Past Medical Histor: HSV2, iron deficiency Past Surgical History: Tonsillectomy Smoking: Non-smoker Alcohol Use: None Drug Use: None, Marijuana General Adult EDM: Chief Complaint: ELBOW PROBLEM HPI: HPI: Patient is a 26-year-old female who presents with right elbow pain. Patient states that a week ago at work she was lifting boxes when she heard a pop in her right elbow. Patient states her elbow has been sore since last week. Patient was at work again today when she was pulling a box and had the same pain in her elbow. Patient reports that her employer sent her into the ER to be evaluated. Denies taking anything for discomfort. No medical history. Review of Systems: Review of Systems: ROS At least 10 ROS systems have been reviewed and are negative except as documented in the HPI. General: Negative except as outlined in HPI above. Skin: Negative except as outlined in HPI above. HEENT: Negative except as outlined in HPI above. Neck: Negative except as outlined in HPI above. Respiratory: Negative except as outlined in HPI above.. Cardiovascular: Negative except as outlined in HPI above. Abdomen: Negative except as outlined in HPI above. : Negative except as outlined in HPI above. Back/MSK: Negative except as outlined in HPI above. Neuro: Negative except as outlined in HPI above. Psych: Negative except as outlined in HPI above. Allergies: Allergies: Allergies Coded Allergies Type Severity Reaction Last Updated Verified diphenhydramine Allergy Unknown 09/20/21 Yes Physical Exam: PE: Constitutional: Well developed, well nourished, no acute distress, non-toxic appearance. [] HENT: Normocephalic, atraumatic, bilateral external ears normal, oropharynx moist, no oral exudates, nose normal. [] Eyes: PERRLA, EOMI, conjunctiva normal, no discharge. [] Neck: Normal range of motion, no tenderness, supple, no stridor. [] Cardiovascular:Heart rate regular rhythm, no murmur [] Lungs & Thorax: Bilateral breath sounds clear to auscultation [] Abdomen: Bowel sounds normal, soft, no tenderness, no masses, no pulsatile masses. [] Skin: Warm, dry, no erythema, no rash. [] Back: No tenderness, no CVA tenderness. [] Extremities: Right elbow tenderness, range of motion is intact, no swelling, radial pulses intact Neurologic: Alert and oriented X 3, normal motor function, normal sensory function, no focal deficits noted. [] Current Patient Data: Vital Signs: Vital Signs Date Time Temp Pulse Resp B/P (MAP) Pulse Ox O2 Delivery O2 Flow Rate FiO2 09/20/21 11:50 97.5 81 18 121/71 (88) 98 Room Air EKG: EKG: [] Radiology/Procedures: Radiology/Procedures: []EXAMINATION: Right elbow radiograph. VIEWS: 3 views of the right elbow COMPARISON: None INDICATION:26 years, Female, pain. FINDINGS: No acute fracture, dislocation or subluxation. No bone erosion or periosteal reaction. No sizable joint effusion. IMPRESSION: No acute radiographic osseous process. Electronically signed by: Fernando Lr DO (09/20/2021 1:31 PM) [facility] Heart Score: C/O Chest Pain: No Risk Factors: Risk Factors: DM, Current or recent (<one month) smoker, HTN, HLP, family history of CAD, obesity. Risk Scores: Score 0 - 3: 2.5% MACE over next 6 weeks - Discharge Home Score 4 - 6: 20.3% MACE over next 6 weeks - Admit for Clinical Observation Score 7 - 10: 72.7% MACE over next 6 weeks - Early Invasive Strategies Course & Med Decision Making: Course & Med Decision Making Pertinent Labs and Imaging studies reviewed. (See chart for details) [] 26-year-old male presents with right elbow pain after trying to move a box. Pain started 1 week ago. Patient denies take anything at home for discomfort. Range of motion is intact. Work-up in ER consisted of x-ray of right elbow. Ibuprofen for pain. X-ray is unremarkable. Discussed all results with patient. Advised patient to continue taking ibuprofen and Tylenol at home for pain. Educated on RICE. Patient is to follow-up with her PCP on Wednesday for a return to work or possible restrictions. Patient understands discharge instructions and appreciative. Dragon Disclaimer: Dragon Disclaimer: This electronic medical record was generated, in whole or in part, using a voice recognition dictation system. Departure Departure: Impression: Primary Impression: Right elbow pain Disposition: [facility] Condition: STABLE Referrals: OLVIN PENALOZA MD (PCP) Patient Instructions: Elbow Injury Additional Instructions: You were seen emergency room for right elbow pain. Rest, ice to the area, elevate to help with the swelling and pain. Ibuprofen at home for discomfort. Follow-up with your PCP on Wednesday to get further evaluation for restrictions for work. EMERGENCY DEPARTMENT GENERAL DISCHARGE INSTRUCTIONS Thank you for coming to [facility] (ED) today and trusting us with you care. We trust that you had a positivie experience in our Emergency Department. If you wish to speak to the department management, you may call the director at [phone]. YOUR FOLLOW UP INSTRUCTIONS ARE FOLLOWS: 1. Do you have a private Doctor? If you do not have a private doctor, please ask for a resource list of physicians or clinics that may be able to assist you with follow up care. 2. The Emergency Physician has interpreted your x-rays. The X-Ray specialist will also review them. If there is a change in the findings, you will be notified in 48 hours when at all possible. 3. A lab test or culture has been done, your results will be reviewed and you will be notified if you need a change in treatment. ADDITIONAL INSTRUCTIONS AND INFORMATION: 1. Your care today has been supervised by a physician who is specially trained in emergency care. Many problems require more than one evaluation for a complete diagnosis and treatment. We recommend that you schedule your follow up appointment as recommended to ensure complete treatment of you illness or injury. If you are unable to obtain follow up care and continue to have a problem, or if your condition worsens, we recommend that you return to the ED. 2. We are not able to safely determine your condition over the phone nor are we able to give sound medical advice over the phone. For these safety reasons, if you call for medical advice we will ask you to come to the ED for further evaluation. 3. If you have any questions regarding these discharge instructions please call the ED at [phone]. SAFETY INFORMATION: In the interest of safety, wellness, and injury prevention; we encourage you to wear your sealbelt, if you smoke; quite smoking, and we encourage family to use a protective helmet for bicycling and other sporting events that present an increased risk for head injury. IF YOUR SYMPTOMS WORSEN OR NEW SYMPTOMS DEVELOP, OR YOU HAVE CONCERNS ABOUT YOUR CONDITION; OR IF YOUR CONDITION WORSENS WHILE YOU ARE WAITING FOR YOUR FOLLOW UP APPOINTMENT; EITHER CONTACT YOUR PRIMARY CARE DOCTOR, THE PHYSICIAN WHOSE NAME AND NUMBER YOU WERE Lindsey BUENROSTRO, OR RETURN TO THE ED IMMEDIATELY. SULEMA HARMON APRN Sep 20, 2021 12:49
[2021-09-20] MEDS ORDERED: IBUPROFEN 600 MG TABLET. PO ONE (13:00)
--- NOTE | 2021-09-20 13:34 | RAD ---
EXAMINATION: Right elbow radiograph. VIEWS: 3 views of the right elbow COMPARISON: None INDICATION:26 years, Female, pain. FINDINGS: No acute fracture, dislocation or subluxation. No bone erosion or periosteal reaction. No sizable kianna nt effusion. IMPRESSION: No acute radiographic osseous process. Electronically signed by: Fernando Lr DO (09/20/2021 1:31 PM) [facility]
[2021-09-20 14:10] VITALS: BP 122/77
== END 2021-09-20 14:12 | disposition home or self-care (01) ==
LOC: ER 11:42
DX: M25.521 Pain in right elbow (principal); F31.9 Bipolar disorder, unspecified; Z88.8 Allergy status to other drugs, medicaments and biological substances
CPT/HCPCS: 73080; 99283